=== PATIENT | male | born 1940 | race Caucasian/White ===

== ENCOUNTER 2018-06-08 21:07 | Observation (INO) | payer OTHER ==
--- NOTE | 2018-06-08 21:51 | EDPHY ---
H & P Smoking Status: Former smoker Time Seen by Provider: 06/08/18 21:18 HPI/ROS: CHIEF COMPLAINT: Left shoulder pain HISTORY OF PRESENT ILLNESS: Patient is a 77-year-old male here with his complaining of left shoulder pain. States that yesterday he did yoga and has had left upper arm pain since yoga class. This evening he went to bed in and after approximately 10 min he developed worsening left shoulder pain that prevented him from sleeping. His is concerned that he may be having heart attack so he came to the emergency room. Denies any chest pain, shortness of breath, diaphoresis. He has no prior cardiac history including no history arrhythmias, stents, dyslipidemia, hypertension. He states he has been told he has a slow heart rate before but this never been taking concerning we low rate. Did have a stress test about 15 years ago which he reports was normal. He also states that he had slightly elevated calcium score over 10 years ago but has had no recent cardiac workup.. He denies any dizziness or lightheadedness. REVIEW OF SYSTEMS: Constitutional: No fever, no chills. Eyes: No discharge. ENT: No sore throat. Cardiovascular: No chest pain, no palpitations. Respiratory: No cough, no shortness of breath. Gastrointestinal: No abdominal pain, no vomiting. Genitourinary: No hematuria. Musculoskeletal: No back pain. Skin: No rashes. Neurological: No headache. (Job Pike) Physical Exam: General Appearance: Alert and no distress. ENT: normal dentition. No tonsillar exudate or swelling. Eyes: Pupils equal and round no injection. Respiratory: Chest is nontender, lungs are clear to auscultation. Cardiac: regular rate and rhythm. No lower extremity edema Gastrointestinal: Abdomen is soft and nontender, no masses, bowel sounds normal. Musculoskeletal: Neck is supple and nontender. Range of motion of the left shoulder worsens left shoulder pain. In particular empty can testing reproduces left shoulder pain. Extremities have full range of motion and are nontender without deformity Skin: No rashes or lesions. Non diaphoretic Neuro: Cranial nerves grossly intact. No nystagmus. (Job Pike) Constitutional: Initial Vital Signs Temperature (C) 36.3 C 06/08/18 21:14 Heart Rate 51 L 06/08/18 21:14 Respiratory Rate 18 06/08/18 21:14 Blood Pressure 152/74 H 06/08/18 21:14 O2 Sat (%) 97 06/08/18 21:14 O2 Delivery Mode Room Air Allergies/Adverse Reactions: RASPBERRIES Allergy (Intermediate, Uncoded 04/12/16 16:07) Hives STRAWBERRIES Allergy (Intermediate, Uncoded 04/12/16 16:07) Hives Home Medications: Medication Instructions Recorded Aspirin [Aspirin 81mg (*)] 162 mg PO DAILY 06/09/18 Ibuprofen [Motrin (*)] 200 - 600 mg PO DAILY 06/09/18 Melatonin [Melatonin 3 MG (*)] 3 mg PO HS 06/09/18 guaiFENesin [Mucinex 600 MG (*)] 600 mg PO BID PRN 06/09/18 Medical Decision Making ED Course/Re-evaluation: 77-year-old male here with left shoulder pain found to be bradycardic with heart rate of approximately 45. During his observation his heart rate did drop to 38. Initial evaluation for possible ACS reveals normal chest x-ray, nonischemic EKG and negative troponin. He was admitted for further cardiac workup and observation for bradycardia. (Job Pike) Differential Diagnosis: Symptomatic bradycardia, ACS, shoulder dislocation, arrhythmia (Job Pike) - Data Points Laboratory Results: Laboratory Results 06/08/18 22:00 06/08/18 22:00 Point of Care Test Results: Chemistry 06/08/18 22:03 POC Troponin I 0.00 ng/mL ng/mL (0.00-0.08) Departure - Departure Disposition: [facility] Acute Clinical Impression: Bradycardia Arm pain Qualifiers: Laterality: left Qualified Code(s): M79.602 - Pain in left arm Condition: Good
[2018-06-08 22:09] LABS: PLATELET COUNT 191 10^3/uL (150-400)
[2018-06-09] MEDS ORDERED: ACETAMINOPHEN 325 MG TAB PO PRN (00:23)
[2018-06-09] MEDS ORDERED: ONDANSETRON 4 MG/2 ML VIAL IVP PRN (00:23)
[2018-06-09] MEDS ORDERED: ONDANSETRON DISINTEGRATING 4 MG TAB PO PRN (00:23)
--- NOTE | 2018-06-09 03:28 | GHP ---
DATE OF ADMISSION: 06/08/2018 CHIEF COMPLAINT: Left shoulder pain and bradycardia. HISTORY OF PRESENT ILLNESS: This is a very pleasant 77-year-old gentleman with past medical history significant for gout, remote hyperlipidemia, and chronic musculoskeletal pain who presents to the [facility] department today with complaints of left shoulder pain. Patient reports he was doing a yoga session and subsequently thought he had some strain or impingemen t as he has had previous repairs and releases on both his shoulders. This evening, the patient was trying to go to bed and he was struggling to get comfortable. His was increasingly concerned that he was having some cardiac-related symptoms. The patient presented to the emergency department. He has not had any complaints of chest pain or dyspnea. No lower extremity edema. No orthopnea or P ND. The patient was noted to have bradycardia with the lowest observed heart rate in the 30s. He has not had any arrhythmias on the monitors, but given his symptoms, the ED provider was concerned that he s hould be observed overnight given the declining heart rate. The patient reports that he has consistently had low heart rates, average 40s to 50s. He is complete ly asymptomatic without any lightheadedness, changes in vision, or presyncope. Patient reports a his tory of childhood episodes of presyncope, but nothing in his adulthood. The patient does report that he has occasional episodes of blurry vision in his left eye without any lightheadedness or presyncopal-type symptoms; however, he will drink some fluids or eat a snack and h ave resolution of symptoms. REVIEW OF SYSTEMS: Ten systems reviewed, negative except as noted above. For clarification, patient reports that he has left greater than right shoulder pain. He has had surgeries on both shoulders a nd his symptoms are reported to be worse with movement. ALLERGIES: No known drug allergies. Food allergies to raspberries and strawberries. HOME MEDICATIONS: Patient without any chronic medications. He has been recently using ibuprofen up to 400 mg several times a day. PAST MEDICAL HISTORY: Significant for gout, remote history of hyperlipidemia. The patient reports t hat he had a reported normal lipid panel during his recent annual physical a few months ago. PAST SURGICAL HISTORY: Significant for lumbar spine surgery, lipoma removed on his shoulder, bilater al shoulder surgeries and releases, appendectomy. FAMILY HISTORY: Sister with history of bradycardia. SOCIAL HISTORY: Patient is . He lives with his . He drinks a glass of wine in the [employer] n[employer], occasionally adds a martini. He does not smoke or utilize any illicit drugs or marijuana. 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 CODE STATUS: Full. Patient does not want any prolonged life support. PHYSICAL EXAMINATION: VITAL SIGNS: Upon arrival, blood pressure 152/74, heart rate 51, respiratory rate 18, O2 saturation is 97% on room air, temperature is 36.6. Vitals currently available, blood pr essure 143/80, heart rate 45, respiratory rate 16, O2 saturation 99% on room air, temperature 36.5. ED provider reported that during his stay in the emergency department that he had a nonsustained epis ode of heart rate down to the mid to low 30s. GENERAL: No acute distress. Very pleasant adult skyler villanueva, appears younger than stated age, is resting comfortably in bed. HEAD: Normocephalic atraumat ic. EYES: Extraocular muscles are grossly intact. Pupils equal, round, reactive to light bilateral ly and symmetric. No scleral icterus or conjunctival injection. ENT: Mucous membranes appear moist . Dentition intact. No nasal discharge. No oropharyngeal erythema or exudates. NECK: Supple. Tr achea midline. CV: Regular rate and rhythm. Bradycardic 40s to 50s. No rubs or gallops appreciate d. RESPIRATORY: Unlabored breathing. LUNGS: Clear to auscultation bilaterally. No wheezes, rales , or rhonchi appreciated. ABDOMEN: Positive bowel sounds. Soft, nontender to palpation. No reboun d, guarding, or masses appreciated. : No suprapubic tenderness to palpation. No Garcia catheter i n place. EXTREMITIES: No cyanosis, clubbing, or edema appreciated. Patient with 2+ pedal pulses bi laterally and symmetric. NEUROLOGICAL: Grossly nonfocal. No facial drooping. Moves all extremitie s. Nothing focal. PSYCHIATRIC: Thought process, content, and questions are all appropriate. The p atient is pleasant and cooperative. LABORATORY STUDIES: WBC 3.90, H and H of 13.9 and 40.4, MCV 94.4, platelet count 199, neutrophil per cent 36.6, no bands. Sodium is 139, potassium 4.4, chloride is 106, CO2 is 26, anion gap 7, BUN 18, creatinine is 0.1, GFR greater than 60, glucose 81, calcium 9.2. Point of care troponin 0.00. TSH i s 5.550. Chest x-ray: Image reviewed myself and report negative for acute abnormality, prominence of aortic k nob and aortic ectasia. No evidence of pleural effusion. EKG reviewed by myself, sinus bradycardia in the 40s. No acute ST changes. T-wave inversion in lead III, T-wave flattening, AVF, and otherwise normal. QTc is 408. ASSESSMENT AND PLAN: A pleasant 77-year-old gentleman who presents to the emergency department with complaints of left shoulder pain and was noted to be bradycardic. 1. Bradycardia. The patient reports a baseline heart rate in the 40s to 50s. He has been asymptoma tic here and has not had any sustained heart rates in the 30s as seen in the emergency department. T he patient will be monitored and a preliminary workup for bradycardia will be reviewed including eduin toring glucose, which is low normal, remainder of thyroid studies as his TSH is slightly elevated, an d monitoring overnight on telemetry. The patient has not had any chest pain and his left shoulder pa in is not a chest pain equivalent. It is musculoskeletal in nature, worse with movement. The patien t does have a longstanding history of shoulder issues and surgeries. He does plan to follow up with his orthopedic surgeon on an outpatient basis for possible injections in the future. He has been liana ing ibuprofen on a regular basis. I did encourage patient to monitor for any GI side effects and to ensure he orally hydrates. At this time, his renal function is adequate. Regarding the bradycardia, suspect this is physiologic as patient does report a longstanding history of physical activity and b aseline heart rate. There is no evidence of an arrhythmia. We will monitor overnight. Repeat tropo nita in the morning. Follow up on laboratory studies as noted above. Anticipate likely discharge. T he patient does have a heart score of 3, but again suspect that the left shoulder pain is not his zulema n equivalent and is musculoskeletal in nature. He is quite active, has not had any chest pain issues or dyspnea. Anticipate patient can follow up with his primary care if he develops any additional sy mptoms. 2. Fluid, electrolyte, nutrition. Saline lock IV. Patient tolerating a regular diet. Electrolytes adequate and does not require replacement. 3. Prophylaxis. SCDs and encourage mobilization. Anticipating short hospital stay. 4. COR is full. Patient does not want prolonged support. 5. Disposition. Patient admitted to observation status on the PCU for close cardiac monitoring. An ticipate likely discharge sometime tomorrow morning pending the results of the laboratory studies as noted above. /[id number]/MODL
[2018-06-09 11:06] VITALS: BP 111/65
--- NOTE | 2018-06-09 13:08 | CPEKG ---
Test Reason : OPEN Blood Pressure : / mmHG Vent. Rate : 055 BPM Atrial Rate : 055 BPM P-R Int : 235 ms QRS Dur : 099 ms QT Int : 459 ms P-R-T Axes : 065 -20 020 degrees QTc Int : 439 ms Sinus rhythm Prolonged NM interval Borderline left axis deviation Low voltage, precordial leads Confirmed by Umer Troncoso ([id number]) on 06/09/2018 1:08:14 PM Referred By: Confirmed By:Umer Troncoso
--- NOTE | 2018-06-09 14:13 | ASMTLACE ---
LACE Length of stay for Answers: Less than 1 day current admission Acuity / Level of Answers: No Care: Did the patient have an inpatient admission? Comorbidities - select Answers: Other Notes: HLD all that apply # of Emergency department Answers: 1-2 visits in the last 6 months Score: 2 Date Signed: 06/09/2018 02:13 PM Electronically Signed By:MARY Dyer
--- NOTE | 2018-06-09 14:16 | ASDISCHSUM ---
Discharge Information Plan Status:Home with No Needs Medically Cleared to Leave:06/08/2018 Discharge Date:06/08/2018 CM D/C Disposition:Home, Routine, Self-Care ADT D/C Disposition:Home, Routine, Self-Care Projected Discharge Date:06/08/2018 Transportation at D/C:Family Discharge Delay Reason: Follow-Up Date:06/08/2018 Discharge Slot: Final Diagnosis: Placement Information Patient Contact Information Contact Name:NORMAN Relationship: Address:[address] City:[place] Alternate Phone: [facility]/Zip Code:[place] [address] Email: Financial Information Financial Class:Medicare Primary Plan Desc:MEDICARE OUTPATIENT Primary Plan Number:[id number] Secondary Plan Desc:YASMIN Secondary Plan Number:[id number] Assessment Information LACE LACE Length of stay for Answers: Less than 1 day current admission Acuity / Level of Answers: No Care: Did the patient have an inpatient admission? Comorbidities - select Answers: Other Notes: HLD all that apply # of Emergency department Answers: 1-2 visits in the last 6 months Score: 2 Date Signed: 06/09/2018 02:13 PM Electronically Signed By:MARY Dyer Case Management Discharge Plan Note Case Management Discharge Discharge Order Complete? Answers: Yes Patient to Obtain Answers: via Family Medications Transportation Arranged Answers: Family/Friends Discharge Comments Notes: Pt was admitted with L shoulder pain and bradycardia. He was observed overnight and is being discharged home today with his family. He has no CM needs at this time. Date Signed: 06/09/2018 02:14 PM Electronically Signed By:MARY Dyer Intervention Information Intervention Type:*FIFI-Signed Date of Service:06/09/2018 10:18 AM Patient Type:Observation Staff Member:Lupe Ewing Hours: Discipline: Severity: Comment:
--- NOTE | 2018-06-09 17:16 | PDDCSUM ---
Discharge Summary Discharge Summary: Date of Admission: 06/08/2018 Date of Discharge: 06/09/2018 Discharge Diagnoses: 1. Sinus bradycardia with occasional 1st degree AV block 2. Left shoulder pain Brief Hospital Course: Healthy and active 77yo M presented at [facility] of due to left shoulder pain. He had recently aggravated this doing yoga and pain intensified last night. He had non-ischemic ECG and negative troponin x2. Stress test not indicated as low risk and story not c/w with angina but rather MSK etiology. Instructed to follow up with his PCP. He was noted to be bradycardic in the ED with HR in the 30s. He was asymptomatic with normal BP. He was monitored on telemetry overnight with HR 40- 50s with occasional 1st degree AV block but nothing higher grade. He also had a few PACs which precipitated short sinus pauses (roughly 1 second). I recommended that we could do an outpatient Holter monitor but he declined for now and will discuss further with PCP. Medications: Please refer to EMR. No changes were made this admission. Follow Up Plan: 1. PCP for shoulder pain and consider cardiac event monitor Physical Exam: Vitals and telemetry reviewed. Alert and oriented, RRR without m/ r/g, lungs clear, abdomen soft, no edema.
== END 2018-06-09 15:12 | disposition home or self-care (01) ==
LOC: F2W 06-09 00:25
PROVIDERS: ADMIT Family Medicine; ATTEND Internal Medicine
DX: R00.1 Bradycardia, unspecified (principal); M25.512 Pain in left shoulder; I44.0 Atrioventricular block, first degree; Z87.891 Personal history of nicotine dependence
CPT/HCPCS: 71045; 93005; G0378; 82947-QW; 84481-90; 84484-PO